=== PATIENT | male | born 1940 | race Caucasian/White ===

== ENCOUNTER 2017-01-31 09:46 | Inpatient (IN) ==
--- NOTE | 2017-01-28 20:48 | Discharge Summary ---
<GregoriazehraMeenu - Last Filed: 01/28/17 20:45> Date of Encounter: 01/28/17 - Discharge Diagnosis (1) Arthritis of right hip Priority: Primary Status: Acute (2) HTN (hypertension) Priority: Secondary Status: Chronic Qualifiers: Hypertension type: essential hypertension Qualified Code(s): I10 - Essential (primary) hypertension (3) HLD (hyperlipidemia) Priority: Secondary Status: Chronic Qualifiers: Hyperlipidemia type: unspecified Qualified Code(s): E78.5 - Hyperlipidemia , unspecified - Discharge Medications Home Medications: Aspirin Enteric Coated [Aspirin EC] 325 mg PO DAILY #21 tablet. 01/28/17 [Rx] OxyCODONE Immed Rel [Roxicodone 5 MG] 5 - 10 mg PO Q6HR PRN #40 tablet 01/28/17 [Rx] Lisinopril/Hydrochlorothiazide [Zestoretic 20-12.5 mg Tablet] 1 each PO DAILY [History] Naproxen Sodium [Aleve] 220 mg PO Q12H PRN 01/31/17 [History] Simvastatin [Zocor] 20 mg PO HS 01/31/17 [History] Allergies/Adverse Reactions: Allergies No Known Allergies Allergy (Verified 01/31/17 10:16) Primary care physician: Shawna Pollack, - Patient Status Disposition: Transfer Inpatient Rehab Fac Condition: Good - Discharge Instructions Follow Up With: Shawna Pollack MD [Primary Care Provider] - - Hospital Course Hospital course: Mr. Khalil is a 76 year old male - Time Spent with Patient Total time spent providing and/or coordinating discharge services: <Abhilash Blackmon - Last Filed: 02/03/17 06:45> Date of Encounter: 02/03/17 Time of Encounter: 06:45 - Discharge Diagnosis (1) Arthritis of right hip Priority: Primary Status: Acute (2) HTN (hypertension) Priority: Secondary Status: Chronic Qualifiers: Hypertension type: essential hypertension Qualified Code(s): I10 - Essential (primary) hypertension (3) HLD (hyperlipidemia) Priority: Secondary Status: Chronic Qualifiers: Hyperlipidemia type: unspecified Qualified Code(s): E78.5 - Hyperlipidemia , unspecified (4) Hyponatremia Priority: Primary Status: Acute Primary care physician: Shawna Pollack, - Patient Status Functional capacity at discharge: uses cane/walker Overall status at discharge: patient is progressing back to baseline - Hospital Course Hospital course: Mr. Khalil is a 76 year old male The patient had an uneventful postoperative course. They received antibiotics and physical therapy and were discharged in stable condition. There will follow -up in the office in 2 weeks. Aspirin DVT prophylaxis. Hyponatremia will be worked up as an outpatient. - Time Spent with Patient Total time spent providing and/or coordinating discharge services:
--- NOTE | 2017-01-31 09:56 | History & Physical Report ---
Date of Encounter: 01/31/17 Time of Encounter: 09:56 24 Hour HP Update - Instructions Instructions: If the History and Physical is less than 30 days old and was completed prior to A.M. admission and or procedure and has NOT been updated on calendar day of procedure please complete this update prior to performing procedure. - Update Patient reports changes in Medical Condition: No Changes in examination, assessment, or condition: No Changes in Medication: No Preop tests/diagnostics Reviewed: Yes Surgery Remains Indicated: Yes Consent for Planned Operative Procedure(s) Verified: Yes - Pre-Operative Checklist Preoperative Checklist Indicated: No Prophylactic Antibiotic Ordered: Yes Is VTE Prophylaxis Indicated?: Yes
--- NOTE | 2017-01-31 10:04 | Anesthesia Evaluation PreOp ---
Date of Encounter: 01/31/17 Time of Encounter: 10:03 - Past History Planned Operation: R total hip arthroplasty Cardiac History: HTN, Hyperlipidemia Pulmonary History: Denies Any Significant HX CERTIFIED WELDER History: Denies Any Significant HX Other Medical History: Denies Any Significant HX Anesthesia History: No Prior Anesthetic Complications, Past Anesthesia (hernia repair, ankle surgery) Medications and Allergies Aspirin Enteric Coated [Aspirin EC] 325 mg PO DAILY #21 tablet. 01/28/17 [Rx] OxyCODONE Immed Rel [Roxicodone 5 MG] 5 - 10 mg PO Q6HR PRN #40 tablet 01/28/17 [Rx] Allergies No Known Allergies Allergy (Unverified 08/02/16 09:17) - Meds/Allergy Pre-op Review Medications Reviewed: Yes Allergies Reviewed: Yes Beta Blockers on Current Med List: No Anesthesia Results - Labs Laboratory Tests 01/17/17 01/17/17 01/27/17 10:02 10:02 12:34 WBC 9.2 Hgb 14.9 Hct 44.7 Plt Count 298 PT 11.6 INR 1.1 APTT 28.9 Sodium 134 L Potassium 4.0 Chloride 101 Carbon Dioxide 24 BUN 23 Creatinine 1.07 Est GFR ( Amer) > 60 Est GFR (Non-Af Amer) > 60 BUN/Creatinine Ratio 21 Glucose 108 H Calculated Osmolality 282 Calcium 9.6 Nasal Screen MRSA (PCR) 01/27/17 12:35 WBC Hgb Hct Plt Count PT INR APTT Sodium Potassium Chloride Carbon Dioxide BUN Creatinine Est GFR ( Amer) Est GFR (Non-Af Amer) BUN/Creatinine Ratio Glucose Calculated Osmolality Calcium Nasal Screen MRSA (PCR) Negative - Imaging EKG: report reviewed, image reviewed (SR; poss anterior IA, inferior IA of indeterminate, poor R wave progression) Anesthesia Exam Weight: 79 kg NPO (# of Hours): >> 8 hrs - HEENT Pupil (Motor): Pupils equal, EOMI Mallampati: III Teeth: Poor dentition Oral Opening: Greater than 3 - CERTIFIED WELDER LOC: Oriented CERTIFIED WELDER Motor: Normal RUE, Normal LUE, Normal RLE, Normal LLE, Normal Face - Cardiac Rhythm: Regular Murmur: None - Pulmonary Breath Sounds: bilateral Clear Respiratory Effort: Symmetrical Anesthesia Assess/Plan ASA Score: 2 Modified Anna Scale for Level of Consciousness: Cooperative, oriented, and tranquil Anesthetic Plan: General, Regional Monitoring Plan: Standard Monitors Recovery Plan: PACU
[2017-01-31] MEDS ORDERED: Lidocaine -MPF 1% 2 ML VIAL ID ONE (10:11)
[2017-01-31] MEDS ORDERED: CeFAZolin Pre 2,000 MG/100 ML 2,000 MG/100 ML BAG IVPB ONE (10:11)
[2017-01-31] MEDS: Ringers Solution, Lactated 1,000 ML IVC SCH ×2 (10:32→14:11)
[2017-01-31] MEDS ORDERED: *HR* Midazolam HCl 2 MG/2 ML VIAL ONE (11:08)
[2017-01-31] MEDS ORDERED: *HR* Propofol 200 MG/20 ML VIAL IVP ONE (11:08)
[2017-01-31] MEDS ORDERED: *HR* FentaNYL (PF) 100 MCG/2 ML VIAL ONE (11:08)
[2017-01-31] MEDS ORDERED: Lidocaine -MPF 2% 2 ML VIAL ONE (11:11)
[2017-01-31] MEDS ORDERED: Ondansetron 4 MG/2 ML VIAL ONE (11:13)
[2017-01-31] MEDS ORDERED: Dexamethasone 4 MG/ML VIAL ONE (11:13)
[2017-01-31] MEDS ORDERED: ROPIVACAINE HCL/PF 0.5% 30 ML VIAL ONE ×2 (11:50)
[2017-01-31] MEDS ORDERED: *HR* Labetalol 100 MG/20 ML MDV IVP PRN (12:46)
[2017-01-31] MEDS ORDERED: Ondansetron 4 MG/2 ML VIAL IVP ONE (12:46)
[2017-01-31] MEDS ORDERED: *HR* HYDROmorphone 2 MG/ML SYRINGE ONE (12:49)
--- NOTE | 2017-01-31 13:12 | Orthopedic Operative Note ---
Date of procedure: 01/31/17 Pre-op diagnosis: Right hip arthritis Post-op diagnosis: same Procedure: Procedure: Right Total Hip Replacment Estimated blood loss: 500 cc Hardware: Metal and polyethylene replacement. Biomet DM Cup: 56 G7 fin cup Femoral size echo full profile lateralized stem 12 Head: 0 head with Dominga Procedural Notes: Grade 4 arthritic changes femoral head acetabular socket. Operative procedure: The patient was brought to the operating room and placed on the operating room table. After general anesthesia was administered the patient was placed in the lateral decubitus position with the operative leg up. All pressure points were padded appropriately and the head was stabilized in the neutral position. The operative extremity was prepped and draped in the sterile surgical fashion patient received IV antibiotic prior to skin incision. A standard posterior approach is made to the operative hip, the incision was made through the skin and subcutaneous tissue hemostasis was obtained with Bovie cautery. Using careful sharp dissection the fascia was identified and incised exposing the external rotators. The external rotators were released off the greater trochanter and tagged with #2 FiberWire suture. The capsule was T'd open and the hip was brought into internal rotation. Patient noted to have grade 4 arthritic changes femoral head. The femoral neck cut was made at the appropriate level. An anterior capsulotomy was performed for the anterior retractor. Soft tissues removed from the acetabulum. Patient noted to have grade 4 arthritic changes acetabulum. Acetabulum was first reamed medially, and then reamed in 15 degrees of anteversion and 45 degrees off the horizontal. It was reamed up to the appropriate size 56. The appropriate-sized 56 acetabular cup was impacted in place in 15 degrees of anteversion and 45 degrees off the horizontal. This had good fit and fixation. The hip was brought back in to internal rotation and prepared with the box nailer followed by the canal finder followed by broaching process in 20 degrees anteversion. It was broached up to the appropriate size 12. The femoral implant was impacted in place in 20 degrees of anteversion. Trial reduction found the hip to be stable with 0 head and Dominga. The trials were removed and the real implants were impacted in place. The hip was reduced, patient had apparent equal leg lengths. The hip had excellent stability with forward flexion to 90 degrees adduction of 30 degrees and internal rotation of 60 degrees. The hip had no shuck. The hips after 2 minutes with a Betadine saline solution. It was irrigated out with 2 L of pulse irrigation. The external rotators were reattached to drill holes in the greater trochanter. Fascia was closed with a running #2 PDS suture. The deep tissue was irrigated and closed deep with #1 PDS suture superficially with 0 PDS suture and skin was closed with Dermabond and skin jared. The patient was placed in a sterile dressing and abduction pillow. The patient was extubated and transferred to the recovery room in stable condition. Anesthesia: GETA Surgeon: Abhilash Blackmon Condition: stable Disposition: PACU
[2017-01-31] MEDS: *HR* HYDROmorphone (PF) 1 MG/ML SYRINGE IVP PRN ×3 (14:01→14:23)
[2017-01-31 14:19] LABS: Hemoglobin 12.7 g/dL (12.9-16.9)
[2017-01-31] MEDS ORDERED: Ketorolac 30 MG/ML VIAL IVP ONE (14:33)
[2017-01-31] MEDS ORDERED: Acetaminophen IV 1,000 MG/100 ML INFUS..BTL IVPB ONE (14:33)
--- NOTE | 2017-01-31 15:10 | Anesthesia Evaluation Post Op ---
Date of Encounter: 01/31/17 Time of Encounter: 15:09 - Vital Signs Vital Signs: Last Vital Signs Temp 97.6 F 01/31/17 14:42 Pulse 84 01/31/17 15:02 Resp 16 01/31/17 15:02 BP 148/78 01/31/17 15:02 Pulse Ox 96 01/31/17 15:02 - Lungs Lungs: Clear Ascult./Percussion - Airway Airway: Non-obstructed - Cardiovascular Regular Rate - Mental Status Mental Status: Alert & Oriented, Answers Appropriately - Pain Pain Scale: 3 - Nausea Vomiting Nausea Vomiting: Not Present - Hydration Hydration: NPO - Discharge PostOp Status: Transfer Patient to floor
[2017-01-31] MEDS ORDERED: Naloxone 0.4 MG/ML INJ IVP PRN (15:35)
[2017-01-31] MEDS ORDERED: *HR* HYDROmorphone (PF) 1 MG/ML SYRINGE IVP PRN (15:35)
[2017-01-31] MEDS ORDERED: *HR* OxyCODONE Immed Rel 5 MG TABLET PO PRN ×2 (15:35)
[2017-01-31] MEDS ORDERED: *HR* Enoxaparin 30 MG/0.3 ML SYRINGE SQ SCH (18:00)
[2017-01-31] MEDS: ceFAZolin 2,000 MG in D5% in Water 100 ML IVPB SCH (18:33)
[2017-01-31] MEDS: *HR* Enoxaparin 30 MG/0.3 ML SYRINGE SQ SCH (18:33)
[2017-02-01] MEDS: ceFAZolin 2,000 MG in D5% in Water 100 ML IVPB SCH (00:39)
[2017-02-01] MEDS: *HR* Enoxaparin 30 MG/0.3 ML SYRINGE SQ SCH ×2 (06:28→17:06)
[2017-02-01 07:59] LABS: Basophils % 0.2 %; Hematocrit 33.5 % (37.5-50.1); Hemoglobin 11.3 g/dL (12.9-16.9); Immature Granulocytes % 0.5 % (0-4); Lymphocytes # 1.2 K/mcL (0.6-4.6); Lymphocytes % 9.4 %; Mean Corpuscular HGB Conc 33.7 g/dL (31.6-35.5); Mean Corpuscular Hemoglobin 26.6 pg (28.0-33.3); Mean Corpuscular Volume 78.8 fL (83.0-100.0); Mean Platelet Volume 10.3 fL (9.4-12.4); Monocytes # 1.4 K/mcL (0.0-1.3); Monocytes % 11.4 %; Neutrophils # 9.9 K/mcL (1.6-8.9); Platelet Count 284 K/mcL (140-400); Red Blood Count 4.25 M/mcL (4.19-5.50); Red Cell Distribution Width 14.5 % (11.5-14.5); Segmented Neutrophils % 78.5 %
--- NOTE | 2017-02-01 08:03 | Orthopedics Progress Note ---
Date of Encounter: 02/01/17 Time of Encounter: 08:02 - Assessment and Plan (1) Arthritis of right hip Current Visit: Yes Status: Acute (2) HTN (hypertension) Current Visit: Yes Status: Chronic Qualifiers: Hypertension type: essential hypertension Qualified Code(s): I10 - Essential (primary) hypertension (3) HLD (hyperlipidemia) Current Visit: Yes Status: Chronic Qualifiers: Hyperlipidemia type: unspecified Qualified Code(s): E78.5 - Hyperlipidemia , unspecified Subjective Interval history: Patient was seen this morning doing well without complaints. Afebrile vital signs stable. Operative extremity: Neurovascularly intact Dressing clean dry and intact Calves nontender Assessment and plan: Continue with postoperative care hct 38 Objective Vital signs: Vital Signs Temp Pulse Resp BP Pulse Ox 02/01/17 06:45 98.2 F 79 14 148/69 97 02/01/17 03:48 98.0 F 90 18 119/71 96 01/31/17 23:45 97.5 F L 97 16 115/65 96 01/31/17 19:48 97.7 F 97 18 134/74 96 01/31/17 18:30 97.5 F L 85 12 119/63 95 01/31/17 16:02 97.5 F L 87 11 146/69 96 01/31/17 16:00 96 01/31/17 15:55 96 01/31/17 15:30 97.7 F 87 14 153/72 95 01/31/17 15:12 97.2 F L 78 16 148/73 94 01/31/17 15:02 84 16 148/78 96 01/31/17 14:52 89 18 155/79 96 01/31/17 14:42 97.6 F 76 18 162/75 96 01/31/17 14:32 79 16 155/70 95 01/31/17 14:22 69 18 158/88 96 01/31/17 14:12 97.2 F L 66 16 146/68 96 01/31/17 14:02 61 16 132/63 96 01/31/17 13:52 63 16 142/71 95 01/31/17 13:42 97.0 F L 70 14 134/70 97 01/31/17 10:23 97.9 F 65 18 139/76 95 Intake and Output 01/31/17 02/01/17 02/01/17 23:59 07:59 15:59 Intake Total 100 / 100 Output Total 250 / 250 350 / 350 Balance -150 / -150 -350 / -350 Intake: IV Fluids 100 / 100 Ancef 2,000 MG In 100 / 100 Dextrose 5% 100 ML @ 200 mls/hr IVPB Q8HR [facility] Rx#: [id number] Oral 0 / 0 Output: Urine 250 / 250 350 / 350 - Labs CBC & BMP: 01/31/17 14:01 Labs: Abnormal lab results Hgb 12.7 g/dL (12.9-16.9) L 01/31/17 14:01 - VTE Documentation of Mechanical Device: Venous foot pump, device Consult Discharge Plan - Plan Referrals: Shawna Pollack MD [Primary Care Provider] -
[2017-02-01] MEDS: Lisinopril-HCTZ 20-12.5mg TABLET PO SCH (08:35)
[2017-02-01] MEDS ORDERED: Acetaminophen 325 MG TABLET PO PRN (13:00)
[2017-02-01 13:36] LABS: BUN/Creatinine Ratio 21 (6-26); Blood Urea Nitrogen 21 mg/dL (8-26); Calcium 9.1 mg/dL (8.6-10.8); Carbon Dioxide 25 mEq/L (19-29); Chloride 95 mEq/L (98-109); Glucose 91 mg/dL (70-99); Osmolality,Calculated 271 (280-300); Potassium 4.4 mEq/L (3.5-4.5); Sodium 129 mEq/L (136-145); eGFR For African Americans > 60 (> 60); eGFR For Non-African Americans > 60 (> 60)
[2017-02-01] MEDS: Acetaminophen 325 MG TABLET PO PRN (19:40)
[2017-02-02] MEDS: *HR* Enoxaparin 30 MG/0.3 ML SYRINGE SQ SCH ×2 (06:20→18:17)
--- NOTE | 2017-02-02 06:38 | Orthopedics Progress Note ---
Date of Encounter: 02/02/17 Time of Encounter: 06:37 - Assessment and Plan (1) Arthritis of right hip Current Visit: Yes Status: Acute (2) HTN (hypertension) Current Visit: Yes Status: Chronic Qualifiers: Hypertension type: essential hypertension Qualified Code(s): I10 - Essential (primary) hypertension (3) HLD (hyperlipidemia) Current Visit: Yes Status: Chronic Qualifiers: Hyperlipidemia type: unspecified Qualified Code(s): E78.5 - Hyperlipidemia , unspecified (4) Hyponatremia Current Visit: Yes Status: Acute Subjective Interval history: Patient was seen this morning doing well without complaints. Afebrile vital signs stable. Operative extremity: Neurovascularly intact Dressing clean dry and intact Calves nontender Assessment and plan: Continue with postoperative care na 129 repeat this AM DC tomorrow Objective Vital signs: Vital Signs Temp Pulse Resp BP Pulse Ox 02/02/17 04:45 98.8 F 79 16 150/65 96 02/01/17 23:40 98.3 F 02/01/17 23:07 100.5 F H 88 18 115/71 94 02/01/17 21:55 99.3 F 96 20 114/57 96 02/01/17 11:28 98.2 F 82 16 118/69 97 02/01/17 06:45 98.2 F 79 14 148/69 97 Intake and Output 02/01/17 02/01/17 02/02/17 15:59 23:59 07:59 Intake Total 240 / 240 200 / 200 Output Total 300 / 300 300 / 300 Balance -60 / -60 -100 / -100 Intake: Oral 200 / 200 Other 240 / 240 Output: Urine 300 / 300 300 / 300 Other: Meal Dinner Percent of Meal Consumed 85% # Urine Diapers 1 - Labs CBC & BMP: 02/01/17 06:47 02/01/17 13:16 Labs: Abnormal lab results WBC 12.6 K/mcL (4.3-11.1) H 02/01/17 06:47 Hgb 11.3 g/dL (12.9-16.9) L 02/01/17 06:47 Hct 33.5 % (37.5-50.1) L 02/01/17 06:47 MCV 78.8 fL (83.0-100.0) L 02/01/17 06:47 MCH 26.6 pg (28.0-33.3) L 02/01/17 06:47 Neutrophils # 9.9 K/mcL (1.6-8.9) H 02/01/17 06:47 Monocytes # 1.4 K/mcL (0.0-1.3) H 02/01/17 06:47 Sodium 129 mEq/L (136-145) L 02/01/17 13:16 Chloride 95 mEq/L (98-109) L 02/01/17 13:16 Calculated Osmolality 271 (280-300) L 02/01/17 13:16 - VTE Documentation of Mechanical Device: Venous foot pump, device Consult Discharge Plan - Plan Referrals: Shawna Pollack MD [Primary Care Provider] -
[2017-02-02 07:29] LABS: BUN/Creatinine Ratio 20 (6-26); Blood Urea Nitrogen 17 mg/dL (8-26); Calcium 8.7 mg/dL (8.6-10.8); Carbon Dioxide 23 mEq/L (19-29); Chloride 95 mEq/L (98-109); Glucose 101 mg/dL (70-99); Osmolality,Calculated 268 (280-300); Potassium 3.8 mEq/L (3.5-4.5); Sodium 128 mEq/L (136-145); eGFR For African Americans > 60 (> 60); eGFR For Non-African Americans > 60 (> 60)
[2017-02-02] MEDS ORDERED: Lisinopril 20 MG TABLET PO ONE (09:00)
[2017-02-02] MEDS ORDERED: 0.9 % Sodium Chloride 500 ML IVC ONE (09:07)
[2017-02-02 15:55] LABS: BUN/Creatinine Ratio 19 (6-26); Blood Urea Nitrogen 20 mg/dL (8-26); Calcium 8.6 mg/dL (8.6-10.8); Carbon Dioxide 24 mEq/L (19-29); Chloride 97 mEq/L (98-109); Glucose 88 mg/dL (70-99); Osmolality,Calculated 270 (280-300); Potassium 3.6 mEq/L (3.5-4.5); Sodium 129 mEq/L (136-145); eGFR For African Americans > 60 (> 60); eGFR For Non-African Americans > 60 (> 60)
[2017-02-03] MEDS: *HR* Enoxaparin 30 MG/0.3 ML SYRINGE SQ SCH (05:30)
[2017-02-03 06:42] VITALS: BP 144/68
--- NOTE | 2017-02-03 06:46 | Orthopedics Progress Note ---
Date of Encounter: 02/03/17 Time of Encounter: 06:46 - Assessment and Plan (1) Arthritis of right hip Current Visit: Yes Status: Acute (2) HTN (hypertension) Current Visit: Yes Status: Chronic Qualifiers: Hypertension type: essential hypertension Qualified Code(s): I10 - Essential (primary) hypertension (3) HLD (hyperlipidemia) Current Visit: Yes Status: Chronic Qualifiers: Hyperlipidemia type: unspecified Qualified Code(s): E78.5 - Hyperlipidemia , unspecified (4) Hyponatremia Current Visit: Yes Status: Acute Subjective Interval history: Patient was seen this morning doing well without complaints. Afebrile vital signs stable. Operative extremity: Neurovascularly intact Dressing clean dry and intact Calves nontender Assessment and plan: Continue with postoperative care Plan for discharge today Objective Vital signs: Vital Signs Temp Pulse Resp BP Pulse Ox 02/03/17 06:41 98.3 F 77 16 144/68 98 02/02/17 23:52 98.5 F 88 19 131/73 97 02/02/17 20:00 97 02/02/17 19:43 98.9 F 85 8 137/70 97 02/02/17 16:20 99.1 F 88 16 144/66 96 02/02/17 10:39 98.8 F 91 18 129/73 96 02/02/17 06:48 98.5 F 73 16 156/68 95 Intake and Output 02/02/17 02/02/17 02/03/17 15:59 23:59 07:59 Intake Total 1390 / 1390 450 / 450 Output Total 1200 / 1200 350 / 350 700 / 700 Balance 190 / 190 100 / 100 -700 / -700 Intake: IV Fluids 500 / 500 0.9 % Sodium Chloride 500 500 / 500 ML @ 1875 mls/hr IVC . Q16M [facility] Rx#:[id number] Oral 890 / 890 450 / 450 Output: Urine 1200 / 1200 350 / 350 700 / 700 Other: Meal Lunch Percent of Meal Consumed 95% # Voids 1 - Labs CBC & BMP: 02/01/17 06:47 02/02/17 15:34 Labs: Abnormal lab results WBC 12.6 K/mcL (4.3-11.1) H 02/01/17 06:47 Hgb 11.3 g/dL (12.9-16.9) L 02/01/17 06:47 Hct 33.5 % (37.5-50.1) L 02/01/17 06:47 MCV 78.8 fL (83.0-100.0) L 02/01/17 06:47 MCH 26.6 pg (28.0-33.3) L 02/01/17 06:47 Neutrophils # 9.9 K/mcL (1.6-8.9) H 02/01/17 06:47 Monocytes # 1.4 K/mcL (0.0-1.3) H 02/01/17 06:47 Sodium 129 mEq/L (136-145) L 02/02/17 15:34 Chloride 97 mEq/L (98-109) L 02/02/17 15:34 Calculated Osmolality 270 (280-300) L 02/02/17 15:34 - VTE Documentation of Mechanical Device: Venous foot pump, device Consult Discharge Plan - Plan Referrals: Shawna Pollack MD [Primary Care Provider] -
[2017-02-03] MEDS: Acetaminophen 325 MG TABLET PO PRN (10:19)
[2017-02-03] MEDS: Lisinopril-HCTZ 20-12.5mg TABLET PO SCH (10:19)
== END 2017-02-03 13:28 | DRG 470 ==
LOC: SAMDAY 09:46 → 3NENU 16:10
PROVIDERS: ADMIT Orthopaedic Surgery; ATTEND Orthopaedic Surgery

== ENCOUNTER 2022-04-03 14:24 | Inpatient (IN) ==
[2022-04-03] MEDS ORDERED: *HR* FentaNYL (PF) 100 MCG/2 ML VIAL IVP ONE (15:23)
[2022-04-03 16:04] LABS: Basophils # 0.1 K/mcL (0.0-0.2); Basophils % 0.9 %; Eosinophils % 0.3 %; Hematocrit 44.8 % (37.5-50.1); Hemoglobin 14.8 g/dL (12.9-16.9); Immature Granulocytes % 0.6 % (0-4); Lymphocytes # 1.1 K/mcL (0.6-4.6); Lymphocytes % 8.3 %; Mean Corpuscular Hemoglobin 30.6 pg (28.0-33.3); Mean Corpuscular Volume 92.6 fL (83.0-100.0); Mean Platelet Volume 10.7 fL (9.4-12.4); Monocytes # 0.9 K/mcL (0.0-1.3); Neutrophils # 11.2 K/mcL (1.6-8.9); Platelet Count 238 K/mcL (140-400); Red Blood Count 4.84 M/mcL (4.19-5.50); Red Cell Distribution Width 13.2 % (11.5-14.5); Segmented Neutrophils % 82.9 %; White Blood Count 13.4 K/mcL (4.3-11.1)
[2022-04-03 16:28] LABS: Calcium 9.6 mg/dL (8.6-10.3); Potassium 4.3 mEq/L (3.5-5.1)
[2022-04-03] MEDS ORDERED: Ondansetron 4 MG/2 ML VIAL IVP PRN (18:30)
[2022-04-03] MEDS ORDERED: Naloxone 0.4 MG/ML INJ IVP PRN (18:30)
[2022-04-03] MEDS ORDERED: Melatonin 3 MG TABLET PO PRN (18:30)
[2022-04-03] MEDS ORDERED: Acetaminophen 325 MG TABLET PO PRN (18:30)
[2022-04-03] MEDS ORDERED: *HR* HYDROcodone/Acet 5/325 mg TABLET PO PRN (18:30)
[2022-04-04 02:44] LABS: Hematocrit 43.8 % (37.5-50.1); Hemoglobin 14.7 g/dL (12.9-16.9); Mean Corpuscular HGB Conc 33.6 g/dL (31.6-35.5); Mean Corpuscular Hemoglobin 30.7 pg (28.0-33.3); Mean Corpuscular Volume 91.4 fL (83.0-100.0); Mean Platelet Volume 10.6 fL (9.4-12.4); Platelet Count 244 K/mcL (140-400); Red Blood Count 4.79 M/mcL (4.19-5.50); Red Cell Distribution Width 13.1 % (11.5-14.5); White Blood Count 14.1 K/mcL (4.3-11.1)
[2022-04-04 03:04] LABS: Calcium 9.4 mg/dL (8.6-10.3); Potassium 4.2 mEq/L (3.5-5.1)
[2022-04-04] MEDS ORDERED: CeFAZolin Syr 2,000MG/20 ML 2,000 MG/20 ML SYRINGE IVPB ONE (11:00)
[2022-04-04] MEDS ORDERED: 0.9 % Sodium Chloride 1,000 ML IVC SCH (11:15)
[2022-04-04] MEDS ORDERED: Famotidine 20 MG/2 ML VIAL IVP ONE (11:32)
[2022-04-04] MEDS ORDERED: Acetaminophen IV 1,000 MG/100 ML BAG IVPB ONE ×2 (11:32→15:56)
[2022-04-04] MEDS ORDERED: Morphine Sulfate 2 MG/ML SYRINGE IVP PRN (12:35)
[2022-04-04] MEDS ORDERED: *HR* Propofol 200 MG/20 ML VIAL IVP ONE (12:35)
[2022-04-04] MEDS ORDERED: *HR* FentaNYL (PF) 100 MCG/2 ML VIAL ONE ×2 (12:35→13:21)
[2022-04-04] MEDS ORDERED: Ondansetron 4 MG/2 ML VIAL ONE (12:36)
[2022-04-04] MEDS ORDERED: Lidocaine -MPF 2% 5 ML VIAL ONE (12:36)
[2022-04-04] MEDS ORDERED: *HR* Labetalol 20 MG/4 ML SYRINGE IVP ONE (13:48)
[2022-04-04] MEDS: CeFAZolin 2 GM/120 ML BAG IVPB SCH (20:38)
[2022-04-04] MEDS ORDERED: *HR* Heparin 5,000 UNIT/ML VIAL SQ SCH (21:00)
[2022-04-05] MEDS: CeFAZolin 2 GM/120 ML BAG IVPB SCH (04:34)
[2022-04-05] MEDS: Apixaban 2.5 MG TABLET PO SCH ×2 (08:19→19:41)
[2022-04-05] MEDS ORDERED: amLODIPine 5 MG TABLET PO SCH (09:00)
[2022-04-05 09:39] LABS: Hemoglobin 13.7 g/dL (12.9-16.9)
[2022-04-05] MEDS: *HR* OxyCODONE Immed Rel 5 MG TABLET PO PRN ×2 (11:04→19:41)
[2022-04-05] MEDS: lisinopriL 20 MG TABLET PO SCH (11:06)
[2022-04-06 05:58] LABS: Hematocrit 41.6 % (37.5-50.1); Hemoglobin 13.6 g/dL (12.9-16.9); Mean Corpuscular HGB Conc 32.7 g/dL (31.6-35.5); Mean Corpuscular Hemoglobin 30.3 pg (28.0-33.3); Mean Corpuscular Volume 92.7 fL (83.0-100.0); Mean Platelet Volume 11.3 fL (9.4-12.4); Platelet Count 259 K/mcL (140-400); Red Blood Count 4.49 M/mcL (4.19-5.50); Red Cell Distribution Width 13.3 % (11.5-14.5); White Blood Count 13.3 K/mcL (4.3-11.1)
[2022-04-06 06:21] LABS: BUN/Creatinine Ratio 21 (6-26); Blood Urea Nitrogen 29 mg/dL (8-23); Calcium 9.4 mg/dL (8.6-10.3); Carbon Dioxide 26 mEq/L (23-29); Chloride 102 mEq/L (98-107); Glucose 100 mg/dL (70-105); Osmolality,Calculated 290 (280-300); Potassium 4.1 mEq/L (3.5-5.1); Sodium 137 mEq/L (136-145); eGFR For African Americans > 60 (> 60); eGFR For Non-African Americans 50 (> 60)
[2022-04-06] MEDS: lisinopriL 20 MG TABLET PO SCH (09:38)
[2022-04-06] MEDS: Apixaban 2.5 MG TABLET PO SCH (09:39)
[2022-04-06] MEDS: *HR* OxyCODONE Immed Rel 5 MG TABLET PO PRN (09:52)
[2022-04-06 12:15] VITALS: BP 128/91; PULSE 110; TEMP 97.7; O2SAT 99
[2022-04-06] MEDS ORDERED: Pfizer Covid-19 Vaccine 30MCG/0.3ML IM ONE (14:44)
== END 2022-04-06 19:10 | DRG 481 ==
LOC: EMEROOARM 14:24 → 3NENU 14:24
PROVIDERS: ADMIT Internal Medicine; ATTEND Internal Medicine